=== PATIENT | male | born 1970 | race Caucasian/White ===

== ENCOUNTER 2016-11-03 11:32 | Emergency (ER) | payer SELFPAY ==
--- NOTE | ~2016-11-03 | CR113 ---
[facility] A Service of [facility] & [facility] RADIOLOGY TEXT RESULTS PATIENT: CANDI HAYES JR LOCATION: SED : 74 UNIT #: [id number] AGE: [address]: Lea Small SEX: M ORDER DR: [id number] [place] [id number] E MR#: [id number] Acc #: [id number] NAME: CANDI HAYES JR : 1970 SEX: M STUDY DATE/TIME: 11/03/2016 11:36 UNIT: SED ROOM: STUDY DESCRIPTION: CR Finger 2 View 4Th Rt Attending Physician: Lea Small Pa-C Ordering Physician: Physician Non-Staff Primary Care Physician: Primary Care Physician No MEDICAL IMAGING REPORT This report is preliminary unless electronic signature is present. EXAM Right fourth finger, 11/03/2016 1136 hours. CLINICAL HISTORY 46-year-old man who suffered laceration to finger, cut on sheet metal today. COMPARISON None. FINDINGS AP, lateral and oblique views of the right fourth finger demonstrate no fracture, dislocation or radiopaque foreign body. IMPRESSION Negative right fourth finger. Dictated by... Tameka De La Paz M.D. THIS IS AN ELECTRONICALLY VERIFIED REPORT Tameka De La Paz M.D. at 11/04/2016 9:38 AM TERRIE/daphne TD: 11/03/2016 21:57 JOB #: [id number] MEDICAL IMAGING REPORT Page 1 of 1
[~2016-11-03 11:32] MED LIST: ACETAMINOPHEN; ILOTYCIN1 G1; LORTAB 5/500 TA1 TA2; MOTRIN400 MG; NO MEDICATIONS
== END 2016-11-03 12:44 | disposition home or self-care (01) ==
LOC: SED 11:32
DX: S61.214A Laceration without foreign body of right ring finger without damage to nail, initial encounter (principal); E11.9 Type 2 diabetes mellitus without complications; I10 Essential (primary) hypertension; W45.8XXA Other foreign body or object entering through skin, initial encounter; Y92.69 Other specified industrial and construction area as the place of occurrence of the external cause
CPT/HCPCS: 12001; 73140; 99283

== ENCOUNTER 2017-01-06 13:14 | Emergency (ER) | payer BC ==
--- NOTE | ~2017-01-06 | EKG ---
PATIENT: CANDI HAYES UNIT #: [id number] Ventricular Rate: 69 BPM Atrial Rate: 69 BPM P-R Interval: 142 ms QRS Duration: 86 ms Q-T Interval: 418 ms QTC Calculation(Bezet): 447 ms P Daviston: -6 degrees Calculated R Daviston: 14 degrees Calculated T Daviston: 10 degrees Diagnosis Line: Normal sinus rhythm Diagnosis Line: Cannot rule out Inferior infarct , age Diagnosis Line: undetermined Diagnosis Line: Abnormal ECG Diagnosis Line: No previous ECGs available Diagnosis Line: Confirmed by LINDA VALLEJO MD ([id number]) on 01/07/2017 Diagnosis Line: 5:50:56 PM INTERPRETING MD: YONI MORALES
--- NOTE | ~2017-01-06 | CR72 ---
[facility] A Service of [facility] & [facility] RADIOLOGY TEXT RESULTS PATIENT: CANDI HAYES JR LOCATION: SED : 74 UNIT #: [id number] AGE: [address]: Zaki Novoa MD SEX: M ORDER DR: [id number] [place] [id number] E MR#: [id number] Acc #: [id number] NAME: CANDI HAYES JR : 1970 SEX: M STUDY DATE/TIME: 01/06/2017 14:19 UNIT: SED ROOM: STUDY DESCRIPTION: CR Chest Single View Portable Attending Physician: Zaki Novoa M.D. Ordering Physician: Zaki Novoa M.D. Primary Care Physician: Panda Moreno M.D. MEDICAL IMAGING REPORT This report is preliminary unless electronic signature is present. EXAM Portable chest 01/06/2017 HISTORY Chest pain and shortness of air and hypertension since yesterday. FINDINGS A single AP portable view of the chest shows both lungs to be clear. The heart is normal in size. The mediastinal contour is normal. No significant bone abnormalities are seen. IMPRESSION Normal portable chest. Dictated by... Minh Evans M.D. THIS IS AN ELECTRONICALLY VERIFIED REPORT Minh Evans M.D. at 01/06/2017 11:18 PM DANIAL/juan david TD: 01/06/2017 17:27 JOB #: [id number] MEDICAL IMAGING REPORT Page 1 of 1
[2017-01-06 13:55] LABS: POC - CKMB <1.0 ng/mL (0.0-7.9); POC - TROPONIN <0.05 ng/mL (<=0.05)
[2017-01-06 14:26] LABS: BASOPHIL# 0.1 X10e3 (0-0.3); BASOPHIL% 0.9 % (0-2.5); EOSINOPHIL# 0.1 X10e3 (0-0.7); HEMATOCRIT 45.4 % (38.0-50.0); HEMOGLOBIN 15.7 gm/dL (13.0-16.0); LYMPHOCYTE# 1.7 X10e3 (1.0-3.5); LYMPHOCYTE% 26.3 % (17.0-45.0); MEAN CELL VOLUME 86.8 FL (83-96); MEAN CORPUSCULAR HEMOGLOBIN 30.1 PG (28-34); MEAN CORPUSCULAR HGB CONC 34.6 g/dL (30-36); MEAN PLATELET VOLUME 7.5 FL (6.5-11.5); MONOCYTE# 0.5 X10e3 (0-1.0); MONOCYTE% 7.4 % (3.0-12.0); NEUTROPHIL# 4.3 X10e3 (1.5-7.1); NEUTROPHIL% 64.4 % (40-75); PLATELET COUNT 238 X10e3 (140-420); RED BLOOD COUNT 5.23 X10e (3.90-5.60); RED CELL DISTRIBUTION WIDTH 13.5 % (11.0-15.5); WHITE BLOOD COUNT 6.6 X10e3 (4.0-10.5)
[2017-01-06 14:27] LABS: DIFF IND NO
[2017-01-06 14:37] LABS: PARTIAL THROMBOPLASTIN TIME 27.2 SECONDS (25.6-38.1)
[2017-01-06 14:38] LABS: ALBUMIN SERUM 4.1 g/dL (3.5-5.0); BILIRUBIN, DIRECT 0.1 mg/dL (0.0-0.2); BILIRUBIN,INDIRECT 0.6 mg/dL (0.0-0.9); BILIRUBIN,TOTAL 0.7 mg/dL (0.2-2.0); BUN/CREATININE RATIO 13.63; CALCIUM SERUM 8.9 mg/dL (8.4-10.2); CREATININE SERUM 1.1 mg/dL (0.6-1.4); GLOM FILT RATE Estimated 81.2 mL/min (>60); POTASSIUM 3.7 mmol/L (3.5-5.1); PROTEIN TOTAL SERUM 6.8 g/dL (6.0-8.3)
[2017-01-06 14:46] LABS: POC - CKMB <1.0 ng/mL (0.0-7.9); POC - TROPONIN <0.05 ng/mL (<=0.05)
== END 2017-01-06 15:35 | disposition home or self-care (01) ==
LOC: SED 13:14
PROVIDERS: Emergency Medicine
DX: I16.9 Hypertensive crisis, unspecified (principal); I10 Essential (primary) hypertension; R07.89 Other chest pain; Z87.891 Personal history of nicotine dependence
CPT/HCPCS: 36415; 71010; 80048; 80076; 82553; 83880; 84484; 85025; 85610; 85730; 99284

== ENCOUNTER → 2017-03-31 | Outpatient (CLI) | payer BC ==
--- NOTE | ~2017-03-31 | US48 ---
[facility]. [facility] A Service of [facility] & [facility] RADIOLOGY TEXT RESULTS PATIENT: CANDI HAYES JR LOCATION: [facility] : 74 UNIT #: [id number] AGE: [address]: VANGIE ANGELO MD SEX: M ORDER DR: [id number] [place] [id number] O MR#: [id number] Acc #: [id number] NAME: CANDI HAYES JR : 1970 SEX: M STUDY DATE/TIME: 03/31/2017 9:29 UNIT: [facility] ROOM: STUDY DESCRIPTION: US Extremity Anatomic Specific Attending Physician: Panda Angelo M.D. Referring Physician: Panda Angelo M.D. Ordering Physician: Panda Angelo M.D. Primary Care Physician: Panda Angelo M.D. MEDICAL IMAGING REPORT This report is preliminary unless electronic signature is present. EXAM US Groin Non Vascular HISTORY Left inguinal pain. Left lower quadrant abdominal pain. FINDINGS Parry-scale and color ultrasound of the left inguinal region was performed. No comparisons are available. No discrete mass or lesion is identified. The adjacent left common femoral vein and left common femoral artery are patent. The departmental secretary performed multiple episodes of Valsalva maneuver, however no focal abnormality is identified. IMPRESSION Negative ultrasound of the left inguinal region. Dictated by... Pascual Wyatt M.D. THIS IS AN ELECTRONICALLY VERIFIED REPORT Pascual Wyatt M.D. at 04/01/2017 8:47 AM ALMAS/tang TD: 03/31/2017 20:05 JOB #: [id number] MEDICAL IMAGING REPORT Page 1 of 1
== END | disposition home or self-care (01) ==
LOC: SGUS 08:47
DX: R10.32 Left lower quadrant pain (principal)
CPT/HCPCS: 76882